=== PATIENT | male | born 1960 | race Caucasian/White ===

== ENCOUNTER 2016-08-27 11:12 | Day surgery (SDC) | payer BC ==
[~2016-08-27 11:12] MED LIST: RINGERS SOLUTION,LACTATED 1,000 ML IV PRN
--- OUTSIDE RECORDS SUMMARY | 2016-08-27 11:15 | XMS REPORT | Continuity of Care Document ---
:1960 Author Organization [facility] ([facility]) Address [address] [place] [address] Phone [phone] Care Team Providers Name Role Phone Vera Mauri Primary Care Provider [phone] Source Comments This disclosure is being made pursuant to the Care Everywhere program, applicable federal and state laws, and may not contain all informaitonavailable regarding this patient.[facility] ([facility]) Active Allergies and Adverse Reactions No Active Allergies Current Medications Not on file Active Problems Not on file Social History Tobacco Use Types Packs/Day Years Used Date Never Assessed Last Filed Vital Signs Vital Sign Reading Time Taken Blood Pressure - - Pulse - - Temperature - - Respiratory Rate - - Height 1.905 m (6' 3") 06/30/2004 9:28 AM INFORMATION TECH Weight 71.999 kg (158 lb 11.7 oz) 07/14/2004 2:57 PM INFORMATION TECH Body Mass Index 19.84 07/14/2004 2:57 PM INFORMATION TECH Oxygen Saturation - - Plan of Care Health Maintenance Due Date Last Done Comments Hepatitis B Vaccine (1 of 3 - Primary 1960 Series) Tdap Vaccine 1969 MMR Vaccine 1976 Td Vaccine 1976 Lipid Disorder Screening 04/16/2007 04/16/2002 Colonoscopy 06/30/2008 Prostate Cancer Screening 2008 06/30/2004 Influenza Vaccine: Seasonal (#1) 01/12/2016 HCV Screening Completed 06/30/2004, 03/05/2002 Results from Last 3 Months Not on file
[2016-08-27] MEDS ORDERED: RINGERS SOLUTION,LACTATED 1,000 ML IV ONE (12:25)
[2016-08-27] MEDS ORDERED: LIDOCAINE HCL 50 ML VIAL IJ ONE (12:30)
[2016-08-27] MEDS ORDERED: BUPIVACAINE HCL 50 ML VIAL IJ ONE (12:30)
[2016-08-27 14:22] VITALS: BP 115/69
== END 2016-08-27 11:13 | disposition home or self-care (01) ==
LOC: AMB 11:12
PROVIDERS: ATTEND Student in an Organized Health Care Education/Training Program
PROC: 0Y6S0Z0 Detachment at Left 2nd Toe, Complete, Open Approach (ICD-10-PCS; principal; 2016-08-27 12:30)
DX: E10.52 Type 1 diabetes mellitus with diabetic peripheral angiopathy with gangrene (principal); Z68.23 Body mass index [BMI] 23.0-23.9, adult

== ENCOUNTER 2016-09-13 08:28 | Emergency (ER) | payer BC ==
--- OUTSIDE RECORDS SUMMARY | 2016-09-13 09:55 | XMS REPORT | Continuity of Care Document ---
:1960 Author Organization [facility] ([facility]) Address [address] [place] [address] Phone [phone] Care Team Providers Name Role Phone Vera Mauri Primary Care Provider [phone] Source Comments This disclosure is being made pursuant to the Care Everywhere program, applicable federal and state laws, and may not contain all informaitonavailable regarding this patient.[facility] ([facility]) Active Allergies and Adverse Reactions No Active Allergies Current Medications Not on file Active Problems Not on file Social History Tobacco Use Types Packs/Day Years Used Date Never Assessed Last Filed Vital Signs Vital Sign Reading Time Taken Blood Pressure - - Pulse - - Temperature - - Respiratory Rate - - Height 1.905 m (6' 3") 06/30/2004 9:28 AM [employer] Weight 71.999 kg (158 lb 11.7 oz) 07/14/2004 2:57 PM [employer] Body Mass Index 19.84 07/14/2004 2:57 PM [employer] Oxygen Saturation - - Plan of Care [...]
[2016-09-13] MEDS ORDERED: NORMAL SALINE 500 ML IV ONE (10:17)
--- NOTE | 2016-09-13 10:21 | ERNOTE ---
Lower Extremity HPI - Narrative Date of Service: 09/13/16 - General Time Seen by Provider: 09/13/16 09:40 Source: patient, family - - Immun/Allergies/Home Medications Immunizations: IMMUNIZATION HX Immunizations Up to Date Yes History of Influenza Vaccine Yes Hx Pneumococcal Vaccination Yes Allergies/Adverse Reactions: Allergies Allergy/AdvReac Type Severity Reaction Status Date / Time No Known Allergies Allergy Unverified 09/13/16 08:42 Home Medications: HOME MEDICATIONS Calcium Carbonate/Vitamin D3 [Os-Dequan 500+D3 Caplet] 1 each PO TID 08/22/15 [ Last Taken 08/22/15] Insulin Glargine,Hum.rec.anlog [Lantus] 12 - 14 units SC BID 08/22/15 [Last Taken 08/22/15] Insulin Lispro [Humalog] 10 - 15 unit SQ TID 08/22/15 [Last Taken 08/22/15] Metoprolol Succinate [Toprol Xl] 100 mg PO DAILY 08/22/15 [Last Taken 08/27/16 06:30] Mycophenolate Mofetil [Cellcept] 750 mg PO BID 08/22/15 [Last Taken 08/27/16 06: 30] Tacrolimus [Prograf] 2 mg PO BID 08/22/15 [Last Taken 08/27/16 06:30] Warfarin Sodium [Coumadin] 6.5 mg PO DAILY 08/22/15 [Last Taken 08/27/16 06:30] predniSONE [Prednisone] 5 mg PO DAILY 08/22/15 [Last Taken 08/22/15] HYDROcodone/ACETAMINOPHEN [[place] 5-325] 1 - 2 tab PO Q4H PRN #60 tab 08/27/16 [ Last Taken Unknown] oxyCODONE HCL/ACETAMINOPHEN [Percocet 5 MG/325 MG] 1 - 2 tab PO Q4H PRN #60 tab 08/27/16 [Last Taken Unknown] Clindamycin HCl [Cleocin HCl] 300 mg PO DAILY 09/13/16 [Last Taken Unknown] - History of Present Illness Narrative: patient had an amputation of the left second toe two weeks ago by Dr. Geronimo. He is in here concerned that he is losing weight and that he is not eating as much and is forced to take twice as much insulin as he usually takes. He has been doing this in conjunction with his warning analyst. he denies any fevers or pain. he is very nervous and worried about an infection. He is on Clindamycin 300mg BID Review of Systems - Review of Systems Constitutional: Present: fatigue, malaise, weight loss, other - patient complains of feeling tired and having some recent weight loss EYE: Present: no symptoms reported ENT: Present: no symptoms reported Respiratory: Present: no symptoms reported Cardiology: Present: no symptoms reported Gastrointestinal/Abdominal: Present: no symptoms reported Musculoskeletal: Present: See HPI - a shunt has no pain at the site of his operation. And he reports no fever at home. - Patient's Past Medical History Patient History - Medical: Diabetes Type 1, Other Patient History - Cardiac/Respiratory: Myocardial Infarction Patient History - Cancer: No Hx of Cancer Patient History - Surgical Procedures: Colonoscopy, Other Patient History - Other: None - Family History Mother Family History - Medical: , No pertinent hx Family History - Cardiac/Respiratory: Other Family History - Cancer: Colon, Liver Father Family History - Medical: , No pertinent hx Family History - Cardiac/Respiratory: No pertinent hx Family History - Cancer: Esophageal - Social History Living Situations: home Abuse History: No History of abuse Psych History: No pertinent hx Smoking Status: Never smoker Alcohol Use: none Drug Use: none - Immunizations Immunizations Up to Date: Yes Hx Pneumococcal Vaccination: Yes History of Influenza Vaccine: Yes Physical Exam - Physical Exam General Appearance: Present: wd/wn, alert, no apparent distress - patient appears sas and concerned about his condition Eye Exam: Normal inspection: bilateral Ears, Nose, Throat: Present: normal ENT inspection Neck: Present: normal inspection, nontender, supple Respiratory: Present: no respiratory distress, normal breath sounds, no accessory muscle use, chest nontender, lungs clear Cardiovascular/Chest: Present: regular rate, rhythm, no murmur, normal peripheral pulses Gastrointestinal/Abdominal: Present: normal bowel sounds, nontender, nondistended, soft, no organomegaly Extremity Exam: Present: normal except - - site of surgery appears clean without any purulent material. Area surrounding erythema in the adjacent skin. No streaking up the foot or leg. Slightly warm to the touch but does not appear angry aggressive. His are noted in place. Neurological Exam: Present: alert, oriented, normal mood/affect, no motor/ sensory deficits Skin Exam: Present: normal color, warm/dry ED Progress - Results and Orders Patient's Lab Results:: I have reviewed the patient's lab results. - Vital Signs Patient's Vital Signs:: I have reviewed the patient's vital signs. Vital Signs: Vital Signs 09/13/16 09/13/16 08:34 09:25 Temperature 36.1 C L 36.6 C Pulse Rate 90 92 Respiratory 1 L 15 Rate Blood Pressure 142/76 136/79 O2 Sat by Pulse 99 97 Oximetry - Progress/Reassessment Chief Complaint: Foot Injury/Pain Plan - Plan Plan: His is a very nervous individual status post amputation of his left second toe by Dr. Geronimo. The counselor dormitory's office was consulted and in the absence of fever or signs of fulminant infection him a dressing was changed and patient will be sent to Dr. Geronimo"s office. In 2 hours. Since white count is slightly elevated at 15. And is stable to be discharged to see Dr. Angel in an hour and a half. Departure Clinical Impression: Postoperative visit - Departure Disposition: Home self-care Additional Instructions: please go see Dr. Geronimo as scheduled later on today. Referrals: Peter Pineda MD [Primary Care Provider] -
[2016-09-13 10:27] LABS: Hematocrit 38.4 % (42.0-52.0); Mean Cell Volume 88.3 fl (78-100); Mean Corpuscular Hemoglobin 27.6 pg (27-31); Mean Corpuscular Hgb Conc 31.3 g/dl (32-36); Mean Platelet Volume 9.6 fl (6.0-9.5); Neutrophil # 13.8 K/mm3 (1.3-6.0); Platelet Count 363 K/mm3 (150-450); Red Blood Count 4.35 M/mm3 (4.7-6.0); Red Cell Distribution Width 13.1 % (11.5-14.0); White Blood Count 15.4 K/mm3 (4.0-10.5)
[2016-09-13 10:40] LABS: Albumin * 2.7 gm/dl (3.4-5.0); Anion Gap 14.8 mmol/L (6.8-13.8); BUN/Creatinine Ratio 17.5 (9.0-21.6); Bilirubin, Total 0.4 mg/dL (0.0-1.1); Ca. Corrected For Albumin 9.1 mg/dL (8.4-10.2); Calcium * 8.4 mg/dL (7.9-10.9); Carbon Dioxide 25.8 mmol/L (24-32.6); Potassium 5.6 mmol/L (3.4-4.6); Total Protein 7.4 gm/dL (6.2-8.2)
[2016-09-13 12:32] VITALS: BP 127/70
== END 2016-09-13 12:40 | disposition home or self-care (01) ==
LOC: ER 08:28
DX: R53.81 Other malaise (principal); R53.83 Other fatigue; Z89.422 Acquired absence of other left toe(s); E10.9 Type 1 diabetes mellitus without complications; Z79.4 Long term (current) use of insulin; Z79.01 Long term (current) use of anticoagulants; I25.2 Old myocardial infarction